=== PATIENT | female | born 1990 | race African-American/Black ===

== ENCOUNTER 2022-05-27 03:58 | Observation (INO) | payer SELFPAY ==
--- NOTE | 2022-05-27 03:58 | PC.NURSE ---
Patient present to unit with complaint of contractions. Patient accompanied by state [address] police officer upon arrival. Patient states she is a with current being a twin . Patient reports history of 1 prior c/section. Patient denies any LOF/vaginal bleeding. Patient instructed to change into gown.
--- NOTE | 2022-05-27 04:15 | PC.NURSE ---
Patient refusing to put gown or belly band on for monitoring. Patient states that she does not want to be evaluated at [facility] and would like to leave to go to [facility] where she receives care. RN educated patient on importance of being evaluated for contractions and that it is not advised for her to leave at the present time. Patient refusing monitoring and states she is leaving and doesn't want care for this hospital. RN notified patient that she is not being discharged from the hospital because she has refused to have an assessment completed, patient states she does not care and wants to leave. RN told patient that if she left the hospital it would be against medical advice, patient states she is leaving and will sign an AMA paper.
--- NOTE | 2022-05-27 04:15 | PC.NURSE ---
Patient presented with AMA form to sign. RN re-educated patient on importance of being evaluated for labor/contractions. RN discussed the risks of leaving AMA without being evaluated. Patient states she still wants to leave AMA; patient instructed to go to nearest hospital if she has any concerns at all.
--- NOTE | 2022-06-16 13:02 | PM.OBPNVD ---
OB - PN: Subj Subjective Date/time seen: Patient left AMA before being seen on 05/27/22. OB - PN A/P Time Spent With Patient Time: Total time spent is greater than 50% in coordination of care (as documented) at patient's floor/unit and/or counseling patient:
== END 2022-05-27 04:15 | disposition left against medical advice (07) ==
PROVIDERS: Admitting Provider Student in an Organized Health Care Education/Training Program; Visit Provider Student in an Organized Health Care Education/Training Program
DX: O60.00 Preterm labor without delivery, unspecified trimester (principal); O30.009 Twin pregnancy, unspecified number of placenta and unspecified number of amniotic sacs, unspecified trimester; Z53.21 Procedure and treatment not carried out due to patient leaving prior to being seen by health care provider; Z3A.00 Weeks of gestation of pregnancy not specified
CPT/HCPCS: 99199